=== PATIENT | female | born 1965 | race Caucasian/White ===

== ENCOUNTER 2016-12-26 08:33 | Inpatient (IN) ==
[2016-12-26] MEDS ORDERED: LEVOFLOXACIN INJ 750 MG in PREMIX 1 EACH IV STA (09:02)
[2016-12-26] MEDS ORDERED: methylPREDNISolone SOD SUC 125 MG/2 ML VIAL IV STA (09:02)
[2016-12-26] MEDS ORDERED: ALBUTEROL NEB SOLN 5 MG/ML 20 ML/BOTTLE CONT NEB STA (09:02)
[2016-12-26] MEDS ORDERED: DILTIAZEM 50 MG/10 ML VIAL IV STA ×2 (09:12→10:14)
[2016-12-26] MEDS ORDERED: methylPREDNISolone SOD SUC 125 MG/2 ML VIAL ONE (09:14)
[2016-12-26] MEDS ORDERED: DILTIAZEM 50 MG/10 ML VIAL IV ONE (09:14)
--- NOTE | 2016-12-26 09:17 | Emergency Department Note ---
Arrival - Arrival Chief Complaint: Altered Mental Status Stated Complaint: AMS ED Nursing Triage Note: PT BROUGHT BY EMS FOR ALTERED MENTAL STATUS. PT FOUND FACE DOWN ON THE FLOOR BESIDE A MATRESS WITH DRUG PARAPHERNALIA BESIDE HER. PT HAS VOIDED ON HERSELF AND BLACK CHARRED AREA NOTED TO FOREHEAD. Mode of Arrival: Stretcher Limitations: Altered Mental Status Source: EMS, Old Records Reviewed Time Seen by Provider: 12/26/16 09:02 - History of Present Illness HPI Narrative: This 51-year-old white female presents lethargic and poorly communicative after being found face down on the floor beside a mattress with drug paraphernalia by the bedside. She is oriented 3 but cannot give a cognitive history because of her state. Of note, the patient has difficulty moving left upper extremity and left lower extremity at this time. I saw the patient previously 11 days ago and at that time she was intact neurologically. Of note, the patient has atrial fib and is on no anticoagulant. Currently, although lethargic she is not in acute medical distress. Allergies/Adverse Reactions: Allergies Allergy/AdvReac Type Severity Reaction Status Date / Time No Known Allergies Allergy Verified 12/26/16 08:52 Home Medications: Home Medications Medication Instructions Recorded Confirmed Type Spironolactone [Aldactone] 25 mg PO DAILY #30 tablet 10/03/15 12/26/16 Rx Atenolol 100 mg PO DAILY #30 tablet 03/10/16 12/26/16 Rx Indomethacin Cap [Indocin Cap] 25 mg PO TID #20 capsule 12/15/16 12/26/16 Rx Tizanidine HCl [Zanaflex] 2 mg PO Q6H #30 capsule 12/15/16 12/26/16 Rx dilTIAZem HCl [Cartia XT] 120 mg PO DAILY 12/15/16 12/26/16 History Review of System - Review of System ROS unobtainable: due to mental status Medical,Surgical,& Family Hx - Medical History Cardio: History of: Cardiac Dysrhythmia (a-fib), CHF, CAD, Hypertension Neurology: History of: Cerebrovascular Accident, Migraine No history of: Seizures Endocrine: History of: Diabetes Mellitus (NIDDM), Dyslipidemia Respiratory: History of: Obstructive Sleep Apnea, Pneumonia Gastrointestinal: History of: GERD Other: History of: Miscellaneous Medical Problems (Morbid obesity) - Family History Family History: Reports;: Family Cancer, Family Hypertension Denies;: Family Diabetes - Social History Smoking Status: Current every day smoker Frequency of Alcohol Use: Unknown Type of Drug Use: Unknown Exam Physical Examination: GENERAL: Lethargic morbidly obese white female. HEENT: Normocephalic. No trauma. Charred area noted on the forehead moist mucous membranes. Left facial droop. EOMI. PERRLA. ENT NML NECK: Supple. No adenopathy. CARDIAC: Irregular. No murmurs. Heart rate 130 CHEST: Scattered expiratory rhonchi and wheezes. No respiratory distress. O2 sat 90% ABDOMEN: Soft. Nontender. Very obese with hypoactive bowel sounds. EXTREMITIES: No trauma. Normal ROM. No pedal edema. SKIN: No diaphoresis. No rash. NEURO: Alert but lethargic. Left facial droop. Full neurologic function right upper and lower extremities with significant weakness of the left upper and left lower extremities. Vital Signs: Vital Signs Temperature 97.2 F L 12/26/16 08:33 Pulse Rate 106 H 12/26/16 10:33 Respiratory Rate 24 12/26/16 10:33 Blood Pressure 148/99 12/26/16 08:33 O2 Sat by Pulse Oximetry 97 12/26/16 10:33 Course - Reevaluation(s) Reevaluation #1: Advised patient of obvious need of hospitalization. - Consultations Consultation #1: Discussed with hospitalist service will admit for further evaluation treatment Results - Labs CBC & BMP: 12/26/16 09:30 12/26/16 09:30 Labs: I reviewed the laboratory noted the elevated white blood cell count, elevated blood sugar, and toxicology positive for methamphetamines - Impressions EKG: Atrial fibrillation with rapid ventricular response at 130. Incomplete right bundle branch block. Right ventricular hypertrophy. Poor R-wave progression anteriorly. Nonspecific ST changes with no acute injury pattern noted - Diagnostic Findings Procedure: Chest x-ray: image reviewed by me, report reviewed by me ( Cardiomegaly with early congestive failure as well as left perihilar pneumonia) , CT: image reviewed by me, report reviewed by me (Chronic large right MCA infarct but no new acute injury) Disposition Clinical Impression: CVA, Congestive heart failure, Left lower lobe pneumonia, Methamphetamine use Case discussed with: patient Disposition: Still a Patient Condition: Guarded Time of Disposition: 11:07
--- NOTE | 2016-12-26 09:46 | CT Report ---
History: Mental status changes. Decreased responsiveness. Lethargic Date: 12/26/2016 Study: CT head without contrast Comparison exam: January 30, [address] sections were obtained through the brain without contrast. The ventricles are midline in position without evidence of hydrocephalus. There is no mass or area of parenchymal hemorrhage. There is no gross CT evidence of acute cortical stroke. There is a large chronic area of right MCA distribution ischemia involving the right temporal and parietal lobes. There is no extra-axial hematoma. The sinuses are generally clear. There is no obvious skull fracture. Impression: No acute intracranial process compared to the previous study. Large area of chronic right MCA distribution ischemia in the right temporal and parietal lobes as before This CT exam was performed using one or more the following dose reduction techniques: Automated exposure control, adjustment of the MA and/or KV according to patient size, or use of iterative reconstruction technique. PROCEDURE INTERPRETED AT [facility] DEPARTMENT OF RADIOLOGY Final Report Signed by: Dr. Genoveva Anaya
[2016-12-26 10:02] LABS: Basophils # 0.1 10*3/uL (0.0-0.2); Basophils % 0.5 % (0.0-0.8); Eosinophils # 0.1 10*3/uL (0.0-0.87); Eosinophils % 0.4 % (0.00-10.9); Hematocrit 52.1 VOL% (35.7-47.0); Hemoglobin 17.5 GM/DL (12.0-16.0); Immature Granulocytes % 0.5 %; Immature Granulocytes Absolute 0.09 #; Lymphocytes # 3.6 10*3/uL (1.4-4.0); Lymphocytes % 21.3 % (21.3-54.2); Mean Corpuscular HGB Conc 33.6 GM/DL (32-36); Mean Corpuscular Hemoglobin 31 PG (27-34); Mean Corpuscular Volume 93.4 FL (87-102); Mean Platelet Volume 9.4 FL (9.6-12.0); Monocytes % 5.6 % (1.7-12.7); Neutrophils # 12.2 10*3/uL (1.4-7.4); Neutrophils % 71.7 % (38.7-73.9); Platelet Count 261 T/CUMM (130-400); Red Blood Count 5.58 MC/CUMM (3.8-5.5); Red Cell Distribution Width 12.5 % (9.3-17.3)
--- NOTE | 2016-12-26 10:08 | XRay Report ---
History: Altered mental status. History of hypertension and diabetes. History of coronary artery disease Date: 12/26/2016 Study: Chest x-ray AP portable Comparison exam: December 15, 2016 There is continued cardiomegaly. The mediastinal contours are unchanged. The pulmonary vasculature is borderline prominent. The exam was performed in shallow inspiration. There is some minor asymmetric hazy left perihilar change. There is minor strandy subsegmental atelectasis in the lung bases. There is no gross pleural effusion. A left subclavian transvenous pacemaker is generally intact and unchanged. Osseous structures are similar. Impression: Cardiomegaly and borderline CHF appearance. There is mild asymmetric left perihilar haziness which could represent mild asymmetric pulmonary edema or mild inflammatory infiltrate. Clinical correlation is requested. Follow-up films may provide clarification. Shallow inspiration. Otherwise unchanged PROCEDURE INTERPRETED AT [facility] DEPARTMENT OF RADIOLOGY Final Report Signed by: Dr. Genoveva Anaya
[2016-12-26 10:11] LABS: Apearance,Urine CLEAR (Clear); Bacteria,Urine Occasional /HPF (Few); Bilirubin,Urine Negative (Negative); Blood, Urine Small mg/dL (Negative); Glucose,Urine (UA) >=500 mg/dL (Negative); Hyaline Casts,Urine 2 /LPF (0-3); Ketones,Urine 20 mg/dL (Negative); Mucus,Urine Occasional /LPF (Occasional); Nitrite,Urine Negative (Negative); Protein,Urine 100 MG/DL; RBC,Urine 2 /HPF (0-4); Squamous Epithelial Cell,Urine Occasional /HPF (0-10); Urine Color Yellow (Yellow); Urine Urobilinogen < 2.0 EU/DL (0.2-1.0); WBC,Urine 3 /HPF (0-6)
[2016-12-26 10:12] LABS: PT Patient Result 10.6 SECS; Partial Thromboplastin Time 24.5 SECS (0-40)
[2016-12-26 10:17] LABS: Barbiturates Screen,Urine Negative (Negative); Benzodiazepines Screen,Urine Negative (Negative); Cannabinoid Screen,Urine Negative (Negative); Opiate Screen,Urine Negative (Negative); Phencyclidine Screen,Urine Negative (Negative)
[2016-12-26 10:32] LABS: Alanine Aminotransferase 32 U/L (13-56); Albumin 3.9 G/DL (3.4-5.0); Alkaline Phosphatase 88 U/L (45-117); Aspartate Amino Transferase 34 U/L (0-37); Blood Urea Nitrogen 11 MG/DL (7-18); Calcium 9.5 MG/DL (8.5-10.1); Glucose 285 MG/DL (74-106); Potassium 3.8 MMOL/L (3.5-5.1); Sodium 136 MMOL/L (136-145); Total Protein 8.4 G/DL (6.4-8.3); Troponin I Only < 0.015 NG/ML (0.00-0.045)
[2016-12-26 10:35] LABS: Ammonia 64 UMOL/L (11-32)
[2016-12-26] MEDS ORDERED: DILTIAZEM 100 MG VIAL.ADD IV ONE (10:36)
[2016-12-26] MEDS ORDERED: LEVOFLOXACIN INJ 150 ML IV ONE (10:36)
[2016-12-26] MEDS: DILTIAZEM INJ 100 MG in SODIUM CHLORIDE 0.9% 100 ML IV SCH (10:50)
--- NOTE | 2016-12-26 11:56 | Hospitalist History & Physical ---
<Aquilino Lobo - Last Filed: 12/26/16 11:45> Assessment and Plan (1) Altered mental status Status: Acute Assessment and plan: There is evidence of elevated ammonia levels. This could also be secondary to methamphetamine overdose. She is tachycardic, mildly hypertensive, with altered mental status. Patient will be admitted to the CCU for close observation and treatment. We will start lactulose. IV fluids. IV Ativan PRN. Current Visit: Yes (2) Hyperammonemia Status: Acute Assessment and plan: Ammonia level is 64. Lactulose Current Visit: Yes (3) Essential hypertension Status: Chronic Assessment and plan: Continue home medications for hypertension. Monitor BP. Current Visit: No (4) Diabetes mellitus Status: Chronic Assessment and plan: Hemoglobin A1c. Accu-chek ACHS. Sliding scale insulin per protocol. Current Visit: No Qualifiers: Diabetes mellitus type: type 2 Diabetes mellitus complication status: without complication Qualified Code(s): E11.9 - Type 2 diabetes mellitus without complications (5) KIM (obstructive sleep apnea) Status: Chronic Assessment and plan: Sleep medicine evaluation. CPAP as necessary. Current Visit: No (6) History of atrial fibrillation Status: Acute Assessment and plan: Patient has a known history of atrial fibrillation with RVR. She is tachycardic in the ED and was given to Cardizem injections with little response. She is now on a Cardizem infusion. EKG is pending. We will go ahead and start her home dose of diltiazem p.o. in an effort to begin transition to an oral rate controlling agent. Current Visit: Yes (7) Noncompliance Status: Chronic Current Visit: No History of Present Illness Chief complaint: AMS History of present illness: Ms. López is a 51 year old female with a past medical history significant for obstructive sleep apnea, morbid obesity, hypertension, diabetes mellitus, atrial fibrillation with RVR and medical noncompliance who presents to the ED today via ambulance after being found face down on the floor alongside a mattress with drug paraphernalia this morning. Despite the patient's lethargic state she is oriented 3 but her history is unreliable and incoherent. Therefore, the bulk of her history was taken from the ER and nurse reports. She does appear to have some left-sided weakness and right hand flap. According to the ER physician, who last saw her 11 days ago, this is not the patient's baseline neurological state. She denies any pain at this time. Lab work is significant for WBC 17.0, hemoglobin 17.5, hematocrit 52.1, sodium 136, potassium 3.8, chloride 104, carbon oxide 25, BUN 11, creatinine 1.0, glucose 285, ammonia 64. Cardiac enzymes are negative. Urinalysis is negative for infection. Urine drug screen does result positive amphetamine/methamphetamine. The patient has had accelerated heart rate and has been started on a Cardizem infusion. For this reason the patient will be admitted to the cardiac care unit for further evaluation and treatment. The case has been discussed with Dr. Riley, ER physician, and Dr. Birmingham, admitting physician. Patient is a full code. Home medications have been reviewed and reconciled. Home Medications Medication Instructions Recorded Confirmed Type Spironolactone [Aldactone] 25 mg PO DAILY #30 tablet 10/03/15 12/26/16 Rx Atenolol 100 mg PO DAILY #30 tablet 03/10/16 12/26/16 Rx Indomethacin Cap [Indocin Cap] 25 mg PO TID #20 capsule 12/15/16 12/26/16 Rx Tizanidine HCl [Zanaflex] 2 mg PO Q6H #30 capsule 12/15/16 12/26/16 Rx dilTIAZem HCl [Cartia XT] 120 mg PO DAILY 12/15/16 12/26/16 History Allergies Allergy/AdvReac Type Severity Reaction Status Date / Time No Known Allergies Allergy Verified 12/26/16 08:52 Medical,Surgical,& Family Hx - Medical History Cardio: History of: Cardiac Dysrhythmia (a-fib), CHF, CAD, Hypertension Neurology: History of: Cerebrovascular Accident, Migraine No history of: Seizures Endocrine: History of: Diabetes Mellitus (NIDDM), Dyslipidemia Respiratory: History of: Obstructive Sleep Apnea, Pneumonia Gastrointestinal: History of: GERD Other: History of: Miscellaneous Medical Problems (Morbid obesity) - Family History Family History: Reports;: Family Cancer, Family Hypertension Denies;: Family Diabetes - Social History Smoking Status: Current every day smoker Frequency of Alcohol Use: Unknown Type of Drug Use: Methamphetamine Marital Status: Single Lives With:: Alone Functional capacity: independent ambulation ROS unobtainable: due to encephalopathy Exam - Constitutional Vitals: Period Temp Pulse Resp BP Sys/Dorman Pulse Ox Last 24 Hr 97.2 F-97.2 F 99-127 18-22 148-148/89-99 90-97 Exam: General appearance: morbidly obese, lethargic - Head Head exam: Present: normocephalic, atraumatic - Eye Eye exam: Present: EOMI. Absent: conjunctival injection, nystagmus Pupils: Present: MICHELINE, normal accommodation - ENT ENT exam: Present: normal exam, normal external ear exam - Neck Neck exam: Present: normal inspection. Absent: lymphadenopathy, tenderness, thyromegaly - Respiratory Respiratory exam: Present: Decreased breath sounds rhonchi rales present. - Cardiovascular Cardiovascular exam: Present: Irregularly irregular. Absent: carotid bruit, gallop, rubs - GI/Abdominal GI/Abdominal exam: Present: Hypoactive bowel sounds. Absent: ascites, distended , mass - Extremities Exam Extremities exam: Present: normal inspection, normal capillary refill. Absent: edema - Back Exam Back exam: Absent: CVA tenderness (L), CVA tenderness (R) - Neurological Exam Neurological exam: Present: alert, oriented X3, CN II-XII intact, reflexes normal - Psychiatric Psychiatric exam: Present: normal affect, normal mood - Skin Skin exam: Present: normal color, warm, dry Results - Labs CBC & BMP: 12/26/16 09:30 12/26/16 09:30 <Shravan Birmingham - Last Filed: 12/26/16 15:13> History of Present Illness History of present illness: Ms. López is a 51 year old female who is being admitted to the hospital with atrial fibrillation with rapid ventricular response, altered mental status, and methamphetamine intoxication. I have seen and examined the patient and reviewed all available laboratory and radiographic test results. I agree with the assessment and plans as per Mansi CARSON. Ms. López will be admitted to the hospital, begun on intravenous diltiazem for heart rate control , monitored for her mental status, and be seen in consultation by cardiology. Exam - Constitutional Vitals: Period Temp Pulse Resp BP Sys/Dorman Pulse Ox Last 24 Hr 97.2 F-97.2 F 91-147 16-22 99-175/70-128 90-98 Results - Labs CBC & BMP: 12/26/16 09:30 12/26/16 09:30
[2016-12-26] MEDS ORDERED: DEXTROSE 50% 25 GM/50 ML VIAL IV PRN (12:24)
[2016-12-26] MEDS ORDERED: ALBUTEROL 2.5 MG/3 ML NEB RESP TX PRN (12:24)
[2016-12-26] MEDS ORDERED: GLUCAGON 1 MG VIAL IM PRN (12:24)
[2016-12-26] MEDS: DILTIAZEM CD 120 MG CAPSULE PO SCH (14:41)
[2016-12-26] MEDS: SODIUM CHLORIDE 0.9% 1,000 ML IV SCH ×2 (14:41→23:50)
[2016-12-26] MEDS: PANTOPRAZOLE 40 MG TABLET PO SCH (14:41)
[2016-12-26] MEDS: LACTULOSE 20 GM/30 ML UDCUP PO SCH ×3 (14:41→21:27)
[2016-12-26] MEDS: ATENOLOL 100 MG TABLET PO SCH (14:41)
[2016-12-26] MEDS: ENOXAPARIN 40 MG/0.4 ML SYRINGE SUBCUT SCH (14:41)
[2016-12-26] MEDS: LORazepam 2 MG/1 ML VIAL IV PRN (15:21)
[2016-12-26] MEDS: INSULIN LISPRO 100 UNIT/ML SUBCUT SCH ×2 (18:05→21:28)
[2016-12-26] MEDS ORDERED: hydrALAZINE 20 MG/1 ML VIAL IV PRN (18:22)
[2016-12-27] MEDS: LACTULOSE 20 GM/30 ML UDCUP PO SCH ×7 (01:29→23:56)
[2016-12-27] MEDS: ACETAMINOPHEN 325 MG TABLET PO PRN ×2 (04:15→13:13)
[2016-12-27] MEDS: SODIUM CHLORIDE 0.9% 1,000 ML IV SCH ×3 (06:27→22:42)
[2016-12-27] MEDS: LORazepam 2 MG/1 ML VIAL IV PRN ×2 (07:45→13:13)
[2016-12-27] MEDS: INSULIN LISPRO 100 UNIT/ML SUBCUT SCH ×4 (08:11→20:22)
[2016-12-27] MEDS: DILTIAZEM CD 120 MG CAPSULE PO SCH (08:12)
[2016-12-27] MEDS: PANTOPRAZOLE 40 MG TABLET PO SCH (08:12)
[2016-12-27] MEDS: ATENOLOL 100 MG TABLET PO SCH (08:12)
[2016-12-27 08:56] LABS: Basophils % 0.1 % (0.0-0.8); Hematocrit 44.9 VOL% (35.7-47.0); Immature Granulocytes % 0.5 %; Immature Granulocytes Absolute 0.08 #; Lymphocytes # 1.4 10*3/uL (1.4-4.0); Lymphocytes % 8.5 % (21.3-54.2); Mean Corpuscular HGB Conc 33.4 GM/DL (32-36); Mean Corpuscular Hemoglobin 32 PG (27-34); Mean Corpuscular Volume 94.9 FL (87-102); Mean Platelet Volume 9.3 FL (9.6-12.0); Monocytes # 1.3 10*3/uL (0.11-0.8); Neutrophils # 13.2 10*3/uL (1.4-7.4); Neutrophils % 82.9 % (38.7-73.9); Platelet Count 234 T/CUMM (130-400); Red Blood Count 4.73 MC/CUMM (3.8-5.5); Red Cell Distribution Width 12.6 % (9.3-17.3); White Blood Count 15.9 T/CUMM (4-12)
[2016-12-27] MEDS ORDERED: SPIRONOLACTONE 25 MG TABLET PO SCH (09:00)
[2016-12-27] MEDS: DILTIAZEM INJ 100 MG in SODIUM CHLORIDE 0.9% 100 ML IV SCH (09:36)
[2016-12-27 09:54] LABS: Calcium 9.7 MG/DL (8.5-10.1); Osmolality,Calculated 283.4 MOS/KG (273-304)
[2016-12-27 09:56] LABS: Potassium 5.9 MMOL/L (3.5-5.1)
--- NOTE | 2016-12-27 11:30 | Hospitalist Progress Note ---
Assessment and Plan (1) Hyperkalemia Status: Acute Assessment and plan: Her potassium today is 5.9. His most probably secondary to Spironolactone, which I will discontinue. Current Visit: Yes (2) Diabetes mellitus Status: Chronic Assessment and plan: Blood glucose today is 175. She is being treated with sliding scale regular insulin coverage. Current Visit: No Qualifiers: Diabetes mellitus type: type 2 Diabetes mellitus complication status: without complication Qualified Code(s): E11.9 - Type 2 diabetes mellitus without complications (3) CVA (cerebral vascular accident) Status: Inactive Assessment and plan: She has a history of a previous CVA. The CT scan of the head yesterday demonstrated a large area of chronic right MCA distribution ischemia in the right temporal and parietal lobes, as previously demonstrated. Current Visit: No Qualifiers: CVA mechanism: embolism Precerebral and cerebral artery: middle cerebral artery, right Qualified Code(s): I63.411 - Cerebral infarction due to embolism of right middle cerebral artery Hospitalist: Subjective Interval history: Patient has required Lorazepam sedation. She is otherwise combative and uncooperative. She is presently sleeping following her most recent Lorazepam. Exam - Constitutional Vitals: Period Temp Pulse Resp BP Sys/Dorman Pulse Ox Last 24 Hr 97.1 F-97.9 F 77-155 12-28 95-173/51-107 90-98 General appearance: no acute distress - Head Head exam: Present: normal inspection - Neck Neck exam: Present: normal inspection - Respiratory Respiratory exam: Present: clear to auscultation bilaterally - Cardiovascular Cardiovascular exam: Present: regular rate and rhythm - GI/Abdominal GI/Abdominal exam: Present: normal bowel sounds, soft - Extremities Exam Extremities exam: Present: normal inspection - Skin Skin exam: Present: normal color, warm, intact Results - Labs CBC & BMP: 12/27/16 08:41 12/27/16 06:53
[2016-12-27] MEDS: ENOXAPARIN 40 MG/0.4 ML SYRINGE SUBCUT SCH (13:13)
--- NOTE | 2016-12-27 13:42 | Order Completion Report ---
See report scanned to EMR
[2016-12-28] MEDS: LACTULOSE 20 GM/30 ML UDCUP PO SCH ×2 (03:36→08:40)
[2016-12-28 05:10] VITALS: BP 130/87
[2016-12-28 05:59] LABS: Basophils % 0.2 % (0.0-0.8); Eosinophils % 0.2 % (0.00-10.9); Hematocrit 44.9 VOL% (35.7-47.0); Hemoglobin 14.7 GM/DL (12.0-16.0); Immature Granulocytes % 0.4 %; Immature Granulocytes Absolute 0.05 #; Lymphocytes # 2.7 10*3/uL (1.4-4.0); Mean Corpuscular HGB Conc 32.7 GM/DL (32-36); Mean Corpuscular Hemoglobin 31 PG (27-34); Mean Corpuscular Volume 94.9 FL (87-102); Mean Platelet Volume 9.5 FL (9.6-12.0); Monocytes # 0.9 10*3/uL (0.11-0.8); Monocytes % 7.1 % (1.7-12.7); Neutrophils # 9.3 10*3/uL (1.4-7.4); Neutrophils % 71.1 % (38.7-73.9); Platelet Count 238 T/CUMM (130-400); Red Blood Count 4.73 MC/CUMM (3.8-5.5); Red Cell Distribution Width 12.5 % (9.3-17.3)
[2016-12-28 06:32] LABS: Calcium 10.1 MG/DL (8.5-10.1); Osmolality,Calculated 278.5 MOS/KG (273-304); Potassium 4.1 MMOL/L (3.5-5.1)
--- NOTE | 2016-12-28 08:17 | Discharge Summary ---
Hospital Course - Hospital Course Hospital Course: Ms. López is a 51 year old female with a past medical history significant for obstructive sleep apnea, morbid obesity, hypertension, diabetes mellitus, atrial fibrillation with RVR and medical noncompliance who presents to the ED today via ambulance after being found face down on the floor alongside a mattress with drug paraphernalia this morning. Despite the patient's lethargic state she is oriented 3 but her history is unreliable and incoherent. Therefore, the bulk of her history was taken from the ER and nurse reports. She does appear to have some left-sided weakness and right hand flap. According to the ER physician, who last saw her 11 days ago, this is not the patient's baseline neurological state. She denies any pain at this time. Lab work is significant for WBC 17.0, hemoglobin 17.5, hematocrit 52.1, sodium 136, potassium 3.8, chloride 104, carbon oxide 25, BUN 11, creatinine 1.0, glucose 285, ammonia 64. Cardiac enzymes are negative. Urinalysis is negative for infection. Urine drug screen does result positive amphetamine/methamphetamine. The patient has had accelerated heart rate and has been started on a Cardizem infusion. The patient was admitted to the hospital with atrial fibrillation with rapid ventricular response and with amphetamine toxicity. She was initially treated with intravenous diltiazem. She subsequently converted back to normal sinus rhythm. While she was treated with anticoagulation in the hospital, she was not begun on long-term anticoagulation due to reliability concerns relating to her drug abuse. At the time of discharge she was stable with no complaints. Diagnosis - Discharge Diagnosis (1) Hyperkalemia Status: Acute (2) Diabetes mellitus Status: Chronic (3) CVA (cerebral vascular accident) Status: Inactive (4) Drug abuse Status: Chronic Discharge Plan - Discharge Data Disposition: Disch To Home/Self Care Condition at Discharge: Stable Discharge Diet: advance to your usual diet Activity: resume usual activities as tolerated - Discharge Medications Continue Atenolol 100 mg PO DAILY #30 tablet dilTIAZem HCl [Cartia XT] 120 mg PO DAILY Tizanidine HCl [Zanaflex] 2 mg PO Q6H #30 capsule Indomethacin Cap [Indocin Cap] 25 mg PO TID #20 capsule Discontinued Spironolactone [Aldactone] 25 mg PO DAILY #30 tablet - Follow Up or Referral - Forms/Instructions Exam - Constitutional Vitals: Period Temp Pulse Resp BP Sys/Dorman Pulse Ox Last 24 Hr 97.5 F-97.9 F 64-96 16-28 101-140/75-99 90-97 Discharge Results Procedures and tests throughout hospitalization: Pending Orders 12/26/16 09:30 Blood Culture Stat 12/26/16 16:09 MRSA Surveillence, Inf Control Routine 12/29/16 04:00 Basic Metabolic Panel IN AM Comp Blood Count Auto Diff IN AM Labs on day of discharge: Labs from last 24 hours 12/28/16 12/28/16 12/28/16 07:25 05:21 05:21 WBC 13.0 H RBC 4.73 Hgb 14.7 Hct 44.9 MCV 94.9 MCH 31 MCHC 32.7 RDW 12.5 Plt Count 238 MPV 9.5 L Neut % (Auto) 71.1 Lymph % (Auto) 21.0 L [place] % (Auto) 7.1 Eos % (Auto) 0.2 Baso % (Auto) 0.2 Neut # (Auto) 9.3 H Lymph # (Auto) 2.7 [place] # (Auto) 0.9 H Eos # (Auto) 0.0 Baso # (Auto) 0.0 Immature Gran % 0.4 Nucleated RBC % 0.0 Immature Gran # 0.05 Nucleated RBCs # 0.00 Immature Plt Fraction 0.0 Sodium 139 Potassium 4.1 Chloride 103 Carbon Dioxide 26 Anion Gap 14.1 BUN 15 Creatinine 0.80 GFR Calculation 125 BUN/Creatinine Ratio 18.00 Glucose 122 H POC Glucose 147 H Calculated Osmolality 278.5 Calcium 10.1 Ammonia 12/27/16 12/27/16 12/27/16 20:00 15:55 11:31 WBC RBC Hgb Hct MCV MCH MCHC RDW Plt Count MPV Neut % (Auto) Lymph % (Auto) [place] % (Auto) Eos % (Auto) Baso % (Auto) Neut # (Auto) Lymph # (Auto) [place] # (Auto) Eos # (Auto) Baso # (Auto) Immature Gran % Nucleated RBC % Immature Gran # Nucleated RBCs # Immature Plt Fraction Sodium Potassium Chloride Carbon Dioxide Anion Gap BUN Creatinine GFR Calculation BUN/Creatinine Ratio Glucose POC Glucose 157 H 190 H 178 H Calculated Osmolality Calcium Ammonia 12/27/16 12/27/16 08:41 06:53 WBC 15.9 H RBC 4.73 Hgb 15.0 D Hct 44.9 MCV 94.9 MCH 32 MCHC 33.4 RDW 12.6 Plt Count 234 MPV 9.3 L Neut % (Auto) 82.9 H Lymph % (Auto) 8.5 L [place] % (Auto) 8.0 Eos % (Auto) 0.0 Baso % (Auto) 0.1 Neut # (Auto) 13.2 H Lymph # (Auto) 1.4 [place] # (Auto) 1.3 H Eos # (Auto) 0.0 Baso # (Auto) 0.0 Immature Gran % 0.5 Nucleated RBC % 0.0 Immature Gran # 0.08 Nucleated RBCs # 0.00 Immature Plt Fraction 0.0 Sodium 140 Potassium 5.9 H Chloride 109 H Carbon Dioxide 16 L Anion Gap 20.9 H BUN 12 Creatinine 0.90 GFR Calculation 108 BUN/Creatinine Ratio 13.00 Glucose 185 H POC Glucose Calculated Osmolality 283.4 Calcium 9.7 Ammonia Preliminary micro results at discharge 12/26/16 09:30 Blood Culture - Preliminary Blood No growth at 1 day 12/26/16 09:30 Blood Culture - Preliminary Blood No growth at 1 day DS: Provider Date of admission: 12/26/16 11:43 Primary care physician: Yessica Adams, Attending physician on admission: Shravan Birmingham Consults: 12/28/16 07:36 Consult to Case Mgmt/Social Srvs [CONS] Routine Reason for Case Mgmt/Social Srvs: Discharge Planning Consult Comment: Discharge today Discharging clinician: Shravan Birmingham
[2016-12-28] MEDS: DILTIAZEM CD 120 MG CAPSULE PO SCH (08:39)
[2016-12-28] MEDS: ATENOLOL 100 MG TABLET PO SCH (08:39)
[2016-12-28] MEDS: PANTOPRAZOLE 40 MG TABLET PO SCH (08:39)
[2016-12-28] MEDS: INSULIN LISPRO 100 UNIT/ML SUBCUT SCH (08:40)
== END 2016-12-28 11:07 | disposition home or self-care (01) | DRG 918 ==
LOC: EDBD → EDUNIT# → N.ED 08:33 → N.EDINP 11:43 → N.CC 13:00 → N.5E 12-27 15:16

== ENCOUNTER 2017-05-09 18:57 | Observation (INO) ==
[2017-05-09] MEDS ORDERED: ALUM/MAG/SIMETH/LIDO VISC 1:1 30 ML BOTTLE PO STA (19:35)
[2017-05-09] MEDS ORDERED: ASPIRIN 325 MG TABLET PO STA (19:35)
[2017-05-09] MEDS ORDERED: NITROGLYCERIN 2% OINT 1 INCH/GM PACK TOP STA (19:35)
[2017-05-09] MEDS ORDERED: MORPHINE 2 MG/1 ML SYRINGE IV STA (19:35)
[2017-05-09] MEDS ORDERED: METOPROLOL TARTRATE 25 MG TABLET PO STA (19:35)
[2017-05-09] MEDS ORDERED: ONDANSETRON 4 MG/2 ML VIAL IV STA (19:35)
[2017-05-09] MEDS ORDERED: ONDANSETRON 4 MG/2 ML VIAL ONE (19:59)
[2017-05-09] MEDS ORDERED: METOPROLOL TARTRATE 25 MG TABLET ONE (19:59)
[2017-05-09] MEDS ORDERED: NITROGLYCERIN 2% OINT 1 INCH/GM PACK TOP ONE (19:59)
[2017-05-09 20:00] LABS: Basophils # 0.1 10*3/uL (0.0-0.2); Basophils % 0.7 % (0.0-0.8); Eosinophils # 0.2 10*3/uL (0.0-0.87); Eosinophils % 1.5 % (0.00-10.9); Hematocrit 49.4 VOL% (35.7-47.0); Hemoglobin 16.1 GM/DL (12.0-16.0); Immature Granulocytes % 0.4 %; Immature Granulocytes Absolute 0.04 #; Lymphocytes # 3.5 10*3/uL (1.4-4.0); Lymphocytes % 32.5 % (21.3-54.2); Mean Corpuscular HGB Conc 32.6 GM/DL (32-36); Mean Corpuscular Hemoglobin 31 PG (27-34); Mean Corpuscular Volume 94.6 FL (87-102); Monocytes % 8.7 % (1.7-12.7); Neutrophils # 6.1 10*3/uL (1.4-7.4); Neutrophils % 56.2 % (38.7-73.9); Platelet Count 263 T/CUMM (130-400); Red Blood Count 5.22 MC/CUMM (3.8-5.5); Red Cell Distribution Width 13.2 % (9.3-17.3); White Blood Count 10.9 T/CUMM (4-12)
[2017-05-09] MEDS ORDERED: MORPHINE 2 MG/1 ML SYRINGE ONE (20:00)
[2017-05-09] MEDS ORDERED: ALUM/MAG/SIMETH/LIDO VISC 1:1 30 ML BOTTLE PO ONE (20:00)
[2017-05-09] MEDS ORDERED: ASPIRIN 325 MG TABLET ONE (20:00)
[2017-05-09 20:13] LABS: INR 0.9; PT Patient Result 9.9 SECS
[2017-05-09 20:21] LABS: Salicylate < 2.8 MG/DL (2.8-20)
[2017-05-09 20:22] LABS: Acetaminophen < 2.0 UG/ML (10-30)
[2017-05-09 20:24] LABS: Alanine Aminotransferase 14 U/L (13-56); Albumin 3.9 G/DL (3.4-5.0); Alkaline Phosphatase 85 U/L (45-117); Aspartate Amino Transferase 12 U/L (0-37); Blood Urea Nitrogen 18 MG/DL (7-18); Calcium 10.5 MG/DL (8.5-10.1); Glucose 151 MG/DL (74-106); Osmolality,Calculated 277.8 MOS/KG (273-304); Potassium 4.5 MMOL/L (3.5-5.1); Sodium 137 MMOL/L (136-145); Total Protein 7.3 G/DL (6.4-8.3); Troponin I Only < 0.015 NG/ML (0.00-0.045)
[2017-05-09] MEDS ORDERED: DEXTROSE 50% 25 GM/50 ML VIAL IV PRN (23:45)
[2017-05-09] MEDS ORDERED: GLUCAGON 1 MG VIAL IM PRN (23:45)
[2017-05-10] MEDS: ENOXAPARIN 40 MG/0.4 ML SYRINGE SUBCUT SCH ×2 (01:16→20:07)
[2017-05-10] MEDS ORDERED: PROMETHAZINE 25 MG/1 ML VIAL IM PRN (01:28)
[2017-05-10] MEDS ORDERED: PROMETHAZINE 25 MG/1 ML VIAL ONE (01:36)
[2017-05-10] MEDS ORDERED: MORPHINE 2 MG/1 ML SYRINGE IV PRN (03:08)
[2017-05-10] MEDS ORDERED: MORPHINE 2 MG/1 ML SYRINGE ONE (03:40)
[2017-05-10 07:30] LABS: Calcium 10.2 MG/DL (8.5-10.1); Potassium 4.7 MMOL/L (3.5-5.1)
[2017-05-10] MEDS: INSULIN REGULAR 100 UNIT/ML SUBCUT SCH ×4 (08:03→21:06)
[2017-05-10] MEDS: DILTIAZEM CD 120 MG CAPSULE PO SCH (10:41)
[2017-05-10] MEDS ORDERED: ASPIRIN CHEW 81 MG TABLET PO ONE ×2 (14:12→14:17)
[2017-05-10] MEDS ORDERED: NITROGLYCERIN SL 0.4 MG TABLET SL ONE (14:15)
[2017-05-10] MEDS: NITROGLYCERIN SL 0.4 MG TABLET SL PRN ×2 (14:16→14:27)
[2017-05-11 07:16] LABS: Risk Ratio 2.23; VLDL CHOLESTEROL 20.8 MG/DL
[2017-05-11] MEDS: DILTIAZEM CD 120 MG CAPSULE PO SCH (08:05)
[2017-05-11] MEDS: INSULIN REGULAR 100 UNIT/ML SUBCUT SCH ×2 (08:05→11:32)
[2017-05-11] MEDS ORDERED: ATENOLOL 100 MG TABLET PO SCH (09:00)
[2017-05-11 10:02] LABS: Basophils # 0.1 10*3/uL (0.0-0.2); Basophils % 0.8 % (0.0-0.8); Eosinophils # 0.2 10*3/uL (0.0-0.87); Eosinophils % 2.1 % (0.00-10.9); Hematocrit 47.7 VOL% (35.7-47.0); Hemoglobin 15.5 GM/DL (12.0-16.0); Immature Granulocytes % 0.5 %; Immature Granulocytes Absolute 0.04 #; Lymphocytes # 2.6 10*3/uL (1.4-4.0); Mean Corpuscular HGB Conc 32.5 GM/DL (32-36); Mean Corpuscular Hemoglobin 31 PG (27-34); Mean Corpuscular Volume 94.3 FL (87-102); Mean Platelet Volume 9.7 FL (9.6-12.0); Monocytes # 0.7 10*3/uL (0.11-0.8); Monocytes % 8.9 % (1.7-12.7); Neutrophils # 4.1 10*3/uL (1.4-7.4); Neutrophils % 53.7 % (38.7-73.9); Platelet Count 241 T/CUMM (130-400); Red Blood Count 5.06 MC/CUMM (3.8-5.5); Red Cell Distribution Width 13.2 % (9.3-17.3); White Blood Count 7.7 T/CUMM (4-12)
[2017-05-11 10:04] VITALS: BP 92/67
[2017-05-11 10:47] LABS: Blood Urea Nitrogen 20 MG/DL (7-18); Calcium 10.3 MG/DL (8.5-10.1); Glucose 149 MG/DL (74-106); Osmolality,Calculated 278.8 MOS/KG (273-304); Potassium 4.7 MMOL/L (3.5-5.1); Sodium 137 MMOL/L (136-145); Troponin I Only < 0.015 NG/ML (0.00-0.045)
== END 2017-05-11 13:00 | disposition hospice, home (50) ==
LOC: EDBD → EDUNIT# → N.EDINP 18:57 → N.ED 18:57 → N.ICU 21:58
PROVIDERS: ADMIT Internal Medicine; ATTEND Internal Medicine

== ENCOUNTER 2018-01-19 12:56 | Inpatient (IN) ==
[2018-01-19] MEDS ORDERED: SODIUM CHLORIDE 0.9% 1,000 ML IV STA (13:44)
[2018-01-19 13:52] LABS: Basophils # 0.1 10*3/uL (0.0-0.2); Basophils % 0.9 % (0.0-0.8); Eosinophils # 0.1 10*3/uL (0.0-0.87); Eosinophils % 1.3 % (0.00-10.9); Hematocrit 47.7 VOL% (35.7-47.0); Hemoglobin 15.6 GM/DL (12.0-16.0); Immature Granulocytes % 0.8 %; Immature Granulocytes Absolute 0.08 #; Lymphocytes # 2.9 10*3/uL (1.4-4.0); Lymphocytes % 27.3 % (21.3-54.2); Mean Corpuscular HGB Conc 32.7 GM/DL (32-36); Mean Corpuscular Hemoglobin 31 PG (27-34); Mean Corpuscular Volume 94.5 FL (87-102); Mean Platelet Volume 10.2 FL (9.6-12.0); Monocytes # 0.8 10*3/uL (0.11-0.8); Monocytes % 7.9 % (1.7-12.7); Neutrophils # 6.5 10*3/uL (1.4-7.4); Neutrophils % 61.8 % (38.7-73.9); Platelet Count 254 T/CUMM (130-400); Red Blood Count 5.05 MC/CUMM (3.8-5.5); Red Cell Distribution Width 12.7 % (9.3-17.3); White Blood Count 10.5 T/CUMM (4-12)
[2018-01-19 13:59] LABS: Apearance,Urine CLOUDY (Clear); Bilirubin,Urine Negative (Negative); Blood, Urine Negative (Negative); Glucose,Urine (UA) >=500 mg/dL (Negative); Ketones,Urine 5 mg/dL (Negative); Mucus,Urine Few /LPF (Occasional); Nitrite,Urine Negative (Negative); Protein,Urine 100 MG/DL; RBC,Urine 23 /HPF (0-4); Squamous Epithelial Cell,Urine Occasional /HPF (0-10); Urine Color Yellow (Yellow); Urine Specific Gravity 1.018 (1.001-1.035); Urine Urobilinogen < 2.0 EU/DL (0.2-1.0); WBC,Urine 35 /HPF (0-6)
[2018-01-19 14:02] LABS: Barbiturates Screen,Urine Negative (Negative); Benzodiazepines Screen,Urine Negative (Negative); Cannabinoid Screen,Urine Negative (Negative); Opiate Screen,Urine Negative (Negative); Phencyclidine Screen,Urine Negative (Negative)
[2018-01-19] MEDS ORDERED: ONDANSETRON 4 MG/2 ML VIAL ONE (14:03)
[2018-01-19] MEDS ORDERED: ONDANSETRON 4 MG/2 ML VIAL IV STA (14:05)
[2018-01-19 15:16] LABS: Alanine Aminotransferase 17 U/L (13-56); Albumin 3.8 G/DL (3.4-5.0); Alkaline Phosphatase 83 U/L (45-117); Aspartate Amino Transferase 26 U/L (0-37); Blood Urea Nitrogen 14 MG/DL (7-18); Calcium 10.5 MG/DL (8.5-10.1); Glucose 207 MG/DL (74-106); Osmolality,Calculated 281.7 MOS/KG (273-304); Potassium 4.8 MMOL/L (3.5-5.1); Sodium 138 MMOL/L (136-145); Total Protein 7.7 G/DL (6.4-8.3)
[2018-01-19] MEDS ORDERED: cefTRIAXone 1,000 MG in SODIUM CHLORIDE 0.9% 100 ML IV STA (15:56)
[2018-01-19] MEDS ORDERED: ONDANSETRON 4 MG/2 ML VIAL IV PRN (16:45)
[2018-01-19] MEDS ORDERED: DEXTROSE 50% 25 GM/50 ML VIAL IV PRN (18:08)
[2018-01-19] MEDS ORDERED: GLUCAGON 1 MG VIAL IM PRN (18:08)
[2018-01-19] MEDS: INSULIN LISPRO 100 UNIT/ML SUBCUT SCH (21:02)
[2018-01-19] MEDS: ACETAMINOPHEN 325 MG TABLET PO PRN (21:03)
[2018-01-20 03:50] LABS: Basophils # 0.1 10*3/uL (0.0-0.2); Basophils % 0.7 % (0.0-0.8); Eosinophils # 0.2 10*3/uL (0.0-0.87); Hemoglobin 13.3 GM/DL (12.0-16.0); Immature Granulocytes % 0.5 %; Immature Granulocytes Absolute 0.04 #; Lymphocytes # 2.8 10*3/uL (1.4-4.0); Mean Corpuscular HGB Conc 32.4 GM/DL (32-36); Mean Corpuscular Hemoglobin 31 PG (27-34); Mean Corpuscular Volume 95.1 FL (87-102); Mean Platelet Volume 9.5 FL (9.6-12.0); Monocytes # 0.8 10*3/uL (0.11-0.8); Monocytes % 9.7 % (1.7-12.7); Neutrophils # 4.8 10*3/uL (1.4-7.4); Neutrophils % 55.1 % (38.7-73.9); Platelet Count 201 T/CUMM (130-400); Red Blood Count 4.31 MC/CUMM (3.8-5.5); Red Cell Distribution Width 12.7 % (9.3-17.3); White Blood Count 8.7 T/CUMM (4-12)
[2018-01-20 04:18] LABS: Calcium 9.5 MG/DL (8.5-10.1); Osmolality,Calculated 281.4 MOS/KG (273-304); Potassium 3.8 MMOL/L (3.5-5.1); Risk Ratio 3.08; Thyroid Stimulating Hormone 1.11 uIU/ml (0.358-3.74)
[2018-01-20] MEDS: RIVAROXABAN 20 MG TABLET PO SCH (09:19)
[2018-01-20] MEDS: MEMANTINE 10 MG TABLET PO SCH ×2 (09:19→20:37)
[2018-01-20] MEDS: CITALOPRAM 20 MG TABLET PO SCH (09:19)
[2018-01-20] MEDS: LISINOPRIL 20 MG TABLET PO SCH (09:19)
[2018-01-20] MEDS: SPIRONOLACTONE 25 MG TABLET PO SCH (09:19)
[2018-01-20] MEDS: INSULIN LISPRO 100 UNIT/ML SUBCUT SCH ×4 (09:20→20:40)
[2018-01-20] MEDS: DILTIAZEM CD 180 MG CAPSULE PO SCH (09:20)
[2018-01-20] MEDS: PANTOPRAZOLE 40 MG TABLET PO SCH (09:20)
[2018-01-20] MEDS: buPROPion SR 100 MG TABLET PO SCH (09:20)
[2018-01-20] MEDS ORDERED: LORazepam 2 MG/1 ML VIAL IM PRN (13:55)
[2018-01-20] MEDS: cefTRIAXone 1,000 MG in SYRINGE 1 EACH IV SCH (16:50)
[2018-01-20] MEDS: ARIPiprazole 10 MG TABLET PO SCH (20:36)
[2018-01-20] MEDS: ACETAMINOPHEN 325 MG TABLET PO PRN (20:37)
[2018-01-21 06:28] LABS: Basophils # 0.1 10*3/uL (0.0-0.2); Basophils % 0.9 % (0.0-0.8); Eosinophils # 0.2 10*3/uL (0.0-0.87); Eosinophils % 3.2 % (0.00-10.9); Hematocrit 42.5 VOL% (35.7-47.0); Hemoglobin 13.7 GM/DL (12.0-16.0); Immature Granulocytes % 0.4 %; Immature Granulocytes Absolute 0.03 #; Lymphocytes # 2.3 10*3/uL (1.4-4.0); Lymphocytes % 33.6 % (21.3-54.2); Mean Corpuscular HGB Conc 32.2 GM/DL (32-36); Mean Corpuscular Hemoglobin 31 PG (27-34); Mean Corpuscular Volume 95.3 FL (87-102); Mean Platelet Volume 9.2 FL (9.6-12.0); Monocytes # 0.7 10*3/uL (0.11-0.8); Monocytes % 9.9 % (1.7-12.7); Neutrophils # 3.6 10*3/uL (1.4-7.4); Platelet Count 193 T/CUMM (130-400); Red Blood Count 4.46 MC/CUMM (3.8-5.5); Red Cell Distribution Width 12.7 % (9.3-17.3); White Blood Count 6.8 T/CUMM (4-12)
[2018-01-21 07:01] LABS: Calcium 9.9 MG/DL (8.5-10.1); Osmolality,Calculated 274.7 MOS/KG (273-304); Osmolality,Calculated 276.5 MOS/KG (273-304); Potassium 4.1 MMOL/L (3.5-5.1); Potassium 4.2 MMOL/L (3.5-5.1)
[2018-01-21] MEDS: INSULIN LISPRO 100 UNIT/ML SUBCUT SCH ×4 (08:06→21:53)
[2018-01-21] MEDS: MEMANTINE 10 MG TABLET PO SCH ×2 (09:07→21:53)
[2018-01-21] MEDS: DILTIAZEM CD 180 MG CAPSULE PO SCH (09:07)
[2018-01-21] MEDS: buPROPion SR 100 MG TABLET PO SCH (09:07)
[2018-01-21] MEDS: CITALOPRAM 20 MG TABLET PO SCH (09:07)
[2018-01-21] MEDS: RIVAROXABAN 20 MG TABLET PO SCH (09:07)
[2018-01-21] MEDS: LISINOPRIL 20 MG TABLET PO SCH (09:07)
[2018-01-21] MEDS: SPIRONOLACTONE 25 MG TABLET PO SCH (09:07)
[2018-01-21] MEDS: PANTOPRAZOLE 40 MG TABLET PO SCH (09:07)
[2018-01-21] MEDS: ACETAMINOPHEN 325 MG TABLET PO PRN (12:49)
[2018-01-21] MEDS: cefTRIAXone 1,000 MG in SYRINGE 1 EACH IV SCH (16:48)
[2018-01-21] MEDS: ARIPiprazole 10 MG TABLET PO SCH (21:53)
[2018-01-22] MEDS: INSULIN LISPRO 100 UNIT/ML SUBCUT SCH ×4 (08:17→20:41)
[2018-01-22] MEDS: LISINOPRIL 20 MG TABLET PO SCH (08:21)
[2018-01-22] MEDS: CITALOPRAM 20 MG TABLET PO SCH (08:22)
[2018-01-22] MEDS: SPIRONOLACTONE 25 MG TABLET PO SCH (08:22)
[2018-01-22] MEDS: buPROPion SR 100 MG TABLET PO SCH (08:22)
[2018-01-22] MEDS: DILTIAZEM CD 180 MG CAPSULE PO SCH (08:22)
[2018-01-22] MEDS: RIVAROXABAN 20 MG TABLET PO SCH (08:22)
[2018-01-22] MEDS: PANTOPRAZOLE 40 MG TABLET PO SCH (08:22)
[2018-01-22] MEDS: MEMANTINE 10 MG TABLET PO SCH ×2 (08:22→20:40)
[2018-01-22] MEDS: cefTRIAXone 1,000 MG in SYRINGE 1 EACH IV SCH (16:09)
[2018-01-22] MEDS: ARIPiprazole 10 MG TABLET PO SCH (20:40)
[2018-01-23 07:07] LABS: Albumin 3.3 G/DL (3.4-5.0); Bilirubin,Total 1.1 MG/DL (0.2-1.0); Calcium 9.8 MG/DL (8.5-10.1); Osmolality,Calculated 275.7 MOS/KG (273-304); Potassium 4.1 MMOL/L (3.5-5.1); Total Protein 7.1 G/DL (6.4-8.3)
[2018-01-23] MEDS: ALBUTEROL/IPRATROPIUM 3 ML NEB RESP TX SCH ×3 (07:18→19:26)
[2018-01-23] MEDS: LISINOPRIL 20 MG TABLET PO SCH (09:09)
[2018-01-23] MEDS: CITALOPRAM 20 MG TABLET PO SCH (09:09)
[2018-01-23] MEDS: buPROPion SR 100 MG TABLET PO SCH (09:09)
[2018-01-23] MEDS: RIVAROXABAN 20 MG TABLET PO SCH (09:10)
[2018-01-23] MEDS: SPIRONOLACTONE 25 MG TABLET PO SCH (09:10)
[2018-01-23] MEDS: PANTOPRAZOLE 40 MG TABLET PO SCH (09:10)
[2018-01-23] MEDS: DILTIAZEM CD 180 MG CAPSULE PO SCH (09:10)
[2018-01-23] MEDS: MEMANTINE 10 MG TABLET PO SCH ×2 (09:10→20:46)
[2018-01-23] MEDS: INSULIN LISPRO 100 UNIT/ML SUBCUT SCH ×4 (09:22→20:46)
[2018-01-23] MEDS: cefTRIAXone 1,000 MG in SYRINGE 1 EACH IV SCH (18:34)
[2018-01-23] MEDS: ARIPiprazole 10 MG TABLET PO SCH (20:46)
[2018-01-24] MEDS: ALBUTEROL/IPRATROPIUM 3 ML NEB RESP TX SCH ×3 (02:24→14:00)
[2018-01-24] MEDS: INSULIN LISPRO 100 UNIT/ML SUBCUT SCH ×2 (08:37→13:48)
[2018-01-24] MEDS ORDERED: CYANOCOBALAMIN 1000 MCG/1 ML VIAL IM ONE (09:00)
[2018-01-24] MEDS: LISINOPRIL 20 MG TABLET PO SCH (09:12)
[2018-01-24] MEDS: DILTIAZEM CD 180 MG CAPSULE PO SCH (09:12)
[2018-01-24] MEDS: SPIRONOLACTONE 25 MG TABLET PO SCH (09:12)
[2018-01-24] MEDS: MEMANTINE 10 MG TABLET PO SCH (09:12)
[2018-01-24] MEDS: buPROPion SR 100 MG TABLET PO SCH (09:12)
[2018-01-24] MEDS: CITALOPRAM 20 MG TABLET PO SCH (09:12)
[2018-01-24] MEDS: PANTOPRAZOLE 40 MG TABLET PO SCH (09:12)
[2018-01-24] MEDS: RIVAROXABAN 20 MG TABLET PO SCH (09:13)
[2018-01-24] MEDS ORDERED: DILTIAZEM CD 240 MG CAPSULE PO SCH (09:45)
[2018-01-24 12:31] VITALS: BP 148/79
[2018-01-24] MEDS ORDERED: ATORVASTATIN 20 MG TABLET PO SCH (21:00)
== END 2018-01-24 15:25 | disposition home health service (06) | DRG 204 ==
LOC: EDBD → EDUNIT# → N.ED 12:56 → N.EDINP 16:27 → N.2W 17:15 → N.TELEN 18:14
PROVIDERS: ADMIT Family Medicine; ATTEND Family Medicine